=== PATIENT | male | born 2000 | race Caucasian/White ===

== ENCOUNTER 2024-01-21 19:20 | Emergency (ER) | payer OTHER, SELFPAY ==
[2024-01-21 19:22] VITALS: BP 135/96
[2024-01-21 19:44] LABS: % Basophils 0.2 % (0-2); % Immature Granulocytes 0.3 % (0-0.5); % Lymphocytes 19.8 % (20.5-51.1); % Monocytes 10.9 % (1.7-9.3); % Neutrophils 67.8 % (42.2-75.2); Absolute Eosinophils 0.1 10^3/uL (0-0.7); Absolute Lymphocytes 1.2 10^3/uL (1.2-3.4); Absolute Monocytes 0.7 10^3/uL (0.1-0.6); Absolute Neutrophils 4.2 10^3/uL (1.4-6.5); Hematocrit 42.1 % (39.0-52.0); Hemoglobin 15.1 g/dL (13.0-18.0); Mean Corp Hgb Conc. 35.9 g/dL (33.0-37.0); Mean Corpuscular Volume 83.5 fL (80.0-94.0); Nucleated Red Blood Cells % 0 % (-); Platelet Count 281 10^3/uL (130-400); Red Blood Cell Count 5.04 10^6/uL (4.70-6.10); White Blood Cell Count 6.2 10^3/uL (4.8-10.8)
[2024-01-21 19:59] LABS: ALT (SGPT) 129 U/L (0-50); AST (SGOT) 66 U/L (17-59); Albumin 4.6 g/dl (3.5-5.0); Alkaline Phosphatase 66 U/L (38-126); Blood Urea Nitrogen 10 mg/dl (9-20); COVID-19 Antigen Negative (Negative); Calcium 9.1 mg/dl (8.4-10.2); Carbon Dioxide 23 mmol/L (22-30); Chloride 101 mmol/L (98-107); Glucose 123 mg/dl (70-99); Potassium 4.3 mmol/L (3.5-5.1); Sodium 139 mmol/L (135-145); Total Bilirubin 0.8 mg/dl (0.2-1.3); Total Protein 7.4 g/dl (6.3-8.2); eGFR > 60.00
[2024-01-21 20:40] VITALS: BMI 28.8
[2024-01-21] MEDS: TYLENOL 1000 MG PO (20:43)
[2024-01-21 21:02] VITALS: BP 115/67
[2024-01-21 21:43] VITALS: BP 129/80
[2024-01-21] MEDS: MOTRIN 600 MG PO (22:08)
[2024-01-21] MEDS: ZITHROMAX 500 MG PO (22:08)
[2024-01-21] MEDS: AMOXIL 1000 MG PO (22:08)
--- NOTE | 2024-01-21 22:47 | ED.GENMED ---
History of Present Illness
General
Chief Complaint: Fever
Source: patient
Exam Limitations: none
Time Seen by Provider: 01/21/24 21:08
Nursing documentation reviewed up to this point in time: agreed with
History of Present Illness
History of Present Illness:
23-year-old male presenting to the emergency department today with concerns of fever and cough over the past week. Initially started with seem to be a viral syndrome about 1 week ago and has developed ongoing cough and fever over the past few days.
Denies significant shortness of breath chest pain nausea vomiting.
Past History
Past History
ED Past Medical History: Psychiatric
ED Past Surgical History: Orthopedic
Social History
Tobacco: Non-smoker
Alcohol: None
Drug: None
Personal: Single
Living: with family
Review of Systems
Review of Systems
Allergies reviewed?: Yes
All Other Systems: ROS reviewed and negative except as documented in HPI and ROS
Phy Exam
Physical Exam
Physical Exam:
GENERAL: Alert , in no apparent distress
EYE: pupils equal and reactive
NECK: Supple, no significant adenopathy.
ENT: o/p clr, mmm.
CARDIAC: Regular rate and rhythm .
LUNGS: Clear breath sounds bilaterally, no acute respiratory distress, no wheezes/rales/rhonchi
ABDOMEN: Soft, without focal tenderness, no r/g, no cvat
NEUROLOGICAL: Alert and oriented, no focal neuro deficits
SKIN: Warm and dry, skin intact.
MUSCULOSKELETAL: No edema, well perfused.
PSYCH: Normal and appropriate interaction.
Sepsis
Sepsis Screening
Sepsis Assessment: Sepsis Ruled Out
Sepsis Screen
Sepsis Screen: Sepsis Ruled Out
Date: 01/21/24
Time: 23:04
Course
Orders/Labs/Results
Orders:
Orders
01/21/24 19:28
COVID-19 Antigen Urgent
Source: Nasal Swab
Complete Blood Count/With Diff Urgent
Comprehensive Metabolic Panel Urgent
Influenza A+B Rapid Molecular Urgent
[facility] Source: Nasal Swab
Specimen Description:
01/21/24 20:37
Acetaminophen [Tylenol] 1,000 mg PO NOW STA
01/21/24 20:46
CXR2 [CR Chest - 2 Views ] Urgent
Comment:
Reason For Exam: cough
01/21/24 21:59
Amoxicillin [Amoxil] 1,000 mg PO NOW STA
Azithromycin [Zithromax] 500 mg PO NOW STA
01/21/24 22:01
Ibuprofen [Motrin] 600 mg PO NOW STA
Abnormal Lab Results
01/21/24
19:28
Absolute Monos (auto) 0.7 H 10^3/uL
(0.1-0.6)
Lymphocytes % 19.8 L %
(20.5-51.1)
Monocytes % 10.9 H %
(1.7-9.3)
Glucose 123 H mg/dl
(70-99)
AST 66 H U/L
(17-59)
ALT 129 H U/L
(0-50)
01/21/24 19:28
01/21/24 19:28
Vital Signs
Initial and Last Documented VS:
Initial Vital Signs
Temp Pulse Resp BP Pulse Ox
101.1 F H 120 18 135/96 94
01/21/24 19:22 01/21/24 19:22 01/21/24 19:22 01/21/24 19:22 01/21/24 19:22
Last Documented Vital Signs
Temp Pulse Resp BP Pulse Ox
98.9 F 120 18 129/80 95
01/21/24 22:03 01/21/24 19:22 01/21/24 19:22 01/21/24 21:43 01/21/24 22:00
MDM/Problems Addressed
MDM/Problems Addressed:
23-year-old male presenting to the emergency department today with concerns of fever and cough. Initially described viral syndrome 1 week ago now worsening cough and fever over the past few days. Febrile to 101.1 on arrival here and tachycardic
otherwise vital signs are normal. Normal pulse ox. Labs unremarkable with chest x-ray showing likely right lower lobe pneumonia. Plan to start antibiotics. Patient was given Motrin Tylenol with normalizing vital signs. Patient appears stable
for outpatient treatment of this and close outpatient follow-up. Return precautions given.
*Critical Care Note
Total Time (30-74mins, 75-104mins- exclusive of procedures): Not Applicable
ED Attending Note
-
Portions of this chart may have been created with voice recognition software.� Occasional wrong word or��sound alike� substitutions may have occurred due to the inherent limitations of voice recognition software.
Discharge Plan
Departure
Patient Disposition: Home (Routine Discharge)
Date of Disposition: 01/21/24
Time of Disposition: 23:01
Patient with high blood pressure during this ER visit?: No
Condition: Good
Covid-19: Not Applicable
Discharge Problem:
Pneumonia
Instructions: Pneumonia in adults
Prescriptions:
New
amoxicillin 875 mg tablet
875 mg PO TID 7 Days Qty: 21 0RF
azithromycin 500 mg tablet
500 mg PO DAILY 2 Days Qty: 2 0RF
No Action
loperamide [Imodium] 2 mg Capsule
2 mg PO Q6HPRN PRN (Reason: diarrhea)
ondansetron HCl 8 mg Tablet
8 mg PO Q8HPRN PRN (Reason: nausea)
sertraline 100 mg Tablet
150 mg PO DAILY
Theragen Tablet
1 tab PO DAILY
amoxicillin-pot clavulanate 875-125 mg tablet
1 tab PO BID 7 Days Qty: 14 0RF
Referrals:
Hailey Veras PA-C [Family Provider] -
Activity Restrictions/Additional Instructions:
You came to the emergency department today with concerns of fever and cough. You were found to have a pneumonia. Please take the prescribed antibiotics as well as Motrin and Tylenol over the next few days. Please follow closely with your primary
care doctor. Return to the emergency department for any worsening, new or concerning symptoms.
Interventions
Interventions:
*Risk Screen - Suicide Last Done: 01/21/24 19:22
*General Assessment Last Done: 01/21/24 19:22
*Neglect/Abuse Screening Last Done: 01/21/24 19:22
*ED COVID-19 Vaccine History Last Done: 01/21/24 19:22
ED- Neurological Assessment Last Done: 01/21/24 21:03
ED-Skin Assessment Last Done: 01/21/24 21:03
Discharge Date and Time
Print Language: MOROCCAN
[2024-01-21 23:00] VITALS: BP 126/82
== END 2024-01-21 23:40 | disposition home or self-care (01) ==
LOC: EMR 19:20
PROVIDERS: Emergency Medicine; EMERGENCY PHYSICIAN Emergency Medicine; FAMILY PHYSICIAN Student in an Organized Health Care Education/Training Program
DX: J18.9 Pneumonia, unspecified organism (principal); Z11.52 Encounter for screening for COVID-19; F41.9 Anxiety disorder, unspecified; F32.A Depression, unspecified
CPT/HCPCS: 99283; 71046; 80053; 85025; 87502; 87811